=== PATIENT | male | born 1980 | race Caucasian/White ===

== ENCOUNTER 2025-03-04 21:03 | Emergency (ER) | payer BC, SELFPAY ==
[2025-03-04 21:08] VITALS: BP 148/98
--- NOTE | 2025-03-04 21:27 | ED.GENMED ---
History of Present Illness
General
Chief Complaint: Skin Surface Trauma
Source: patient
Exam Limitations: none
Time Seen by Provider: 03/04/25 21:19
History of Present Illness
History of Present Illness:
See MDM
Past History
Past History
ED Past Medical History: None
Social History
Tobacco: Non-smoker
Alcohol: None
Phy Exam
Physical Exam
Physical Exam:
See MDM
Course
Orders/Labs/Results
Orders:
Orders
03/04/25 21:23
Oxycodone [Roxicodone] 5 mg PO NOW STA
CR Finger(s)/thumb Min 2 Vw Rt Urgent
Comment:
Reason For Exam: crush injury to distal middle finger
Indicate Which Finger:: Middle Finger
03/04/25 21:26
Amoxicillin 875 mg/Clav 125 mg [Augmentin 875 mg/125 mg] 1 tablet PO NOW STA
Vital Signs
Initial and Last Documented VS:
Initial Vital Signs
Temp Pulse Resp BP
98.5 F 77 20 148/98
03/04/25 21:08 03/04/25 21:08 03/04/25 21:08 03/04/25 21:08
Last Documented Vital Signs
Temp Pulse Resp BP
98.5 F 77 20 148/98
03/04/25 21:08 03/04/25 21:08 03/04/25 21:08 03/04/25 21:08
MDM/Problems Addressed
Differential Diagnosis Includes:
Note:
CHIEF COMPLAINT(S)
Finger injury.
HISTORY OF PRESENT ILLNESS
The patient is a 44-year-old male who presented with a finger injury. 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 The
patient reports a similar previous incident about 10 years ago, where he injured the same finger by dropping a 105-pound dumbbell on it, resulting in the loss of the fingernail and nail bed, which was treated by a hand surgeon. In the current
injury, pieces of the finger are missing, and the wound is described as dirty. The patient denies any allergies except to bees and reports that his tetanus vaccination is up to date as of two months ago. He requests something for pain relief that
would not cause sleepiness, as he works in physical therapy.
PHYSICAL EXAM
General: Alert, no acute distress.
Skin: Warm, dry.
Head: Normocephalic, atraumatic
Neck: Appears supple, trachea midline.
Eyes, Ears, Nose, Mouth, and Throat: Moist mucous membranes
Cardiovascular: No signs of cyanosis
Respiratory: Respirations are non-labored.
Abdomen: Non-distended
Musculoskeletal: Crush injury to distal left middle finger affecting the nailbed. Cap refill intact. Sensation grossly intact
Neurological: No focal neurological deficit observed.
Psychiatric: Cooperative, appropriate mood and affect.
PLAN
- Perform an x-ray of the injured finger to rule out any fractures.
- Administer antibiotics due to the dirty nature of the wound and the propensity of hand wounds to become infected.
- Apply gel foam to the exposed skin to act as a hemostatic agent, followed by a bulky dressing for protection.
- Refer the patient to a hand specialist, though the expectation is primarily allowing natural healing and regrowth.
- Discuss pain management with the patient, avoiding medications that may interfere with his ability to work.
DIFFERENTIAL DIAGNOSIS
The Differential Diagnosis includes, in no particular order and is not limited to:
- Finger laceration
- Fingertip avulsion
- Finger fracture
- Nail bed injury
- Soft tissue infection
- Crush injury
- Amputation of finger tip
- Foreign body in soft tissue
- Hematoma
- Contusion
INDEPENDENT REVIEW OF LABS AND INTERPRETATION OF TESTS
- My independent interpretation of the x-ray will be performed to assess for any fractures or foreign bodies.
MEDICATION RECONCILIATION
- Prescription anticipated for antibiotics due to the nature of the wound.
MEDICAL DECISION MAKING
- Complexity of Data Reviewed: Chronic conditions affecting care [none mentioned]
In this section also Include the DDx list from differential diagnosis in the system prompt.
- Data:
Category 1
- My independent interpretation of the x-ray will assess for fractures or foreign bodies.
Category 3
- Referral to a hand specialist for follow-up.
- Risk:
- Prescription medication was prescribed.
DIAGNOSIS
- Fingertip avulsion - S68.112A
- Open wound of right finger without damage to nail - S61.010A
- Possible infection of wound - T81.4XXA
SUMMARY OF ENCOUNTER
The patient, a 44-year-old male, presented to the emergency department with an avulsion injury to his fingertip, including involvement of the nail bed. There were missing pieces of skin, making suturing unfeasible. The exposed dermis was treated
with gel foam, and a bulky dressing was applied for protection. The patient confirmed having an up-to-date tetanus vaccination and planned to follow up with a hand surgeon. Due to the wounds nature, the patient was prescribed amoxicillin/clavulanate
(Augmentin) for infection prevention.
PLAN
The patient is advised to follow up with a hand surgeon for further management and wound evaluation. The use of gel foam and a bulky dressing was recommended for wound care. The administration of antibiotics is part of the infection prevention
strategy.
FOLLOW-UP INSTRUCTIONS
Follow-up with a hand surgeon as discussed for ongoing management of the finger injury.
MEDICATION RECONCILIATION
Amoxicillin/clavulanate (Augmentin) was prescribed for the patient to prevent infection.
DIAGNOSIS
Fingertip avulsion with nail bed involvement - S68.112A. Open wound of right finger without damage to nail - S61.010A. Possible infection of the wound - T81.4XXA.
*Pulse Oximetry
Oxygen Mode of Delivery: Room air
Patient hypoxic: no
*Critical Care Note
Total Time (30-74mins, 75-104mins- exclusive of procedures): Not Applicable
ED Attending Note
-
Portions of this chart may have been created with voice recognition software.� Occasional wrong word or��sound alike� substitutions may have occurred due to the inherent limitations of voice recognition software.
Discharge Plan
Departure
Patient Disposition: Home (Routine Discharge)
Date of Disposition: 03/04/25
Time of Disposition: 22:00
Patient with high blood pressure during this ER visit?: Yes
Discharge Problem:
Avulsion, finger tip
Instructions: BLOOD PRESSURE
Prescriptions:
New
amoxicillin-pot clavulanate 875-125 mg tablet
1 tab PO BID Qty: 14 0RF
Referrals:
Campbell Penny CRNP [Family Provider, Internal Medicine]
Activity Restrictions/Additional Instructions:
Please return for any worsening symptoms.
You may return at any time if you have further concerns.
Please follow up with your doctor at the first available appointment, preferably this week.
Please make an appointment to see the hand surgeon.
Thank you for choosing [facility].
Interventions
Interventions:
*Risk Screen - Suicide Last Done: 03/04/25 21:08
*General Assessment Last Done: 03/04/25 21:08
*Neglect/Abuse Screening Last Done: 03/04/25 21:08
*ED COVID-19 Vaccine History Last Done: 03/04/25 21:08
*ED Influenza Vaccine History Last Done: 03/04/25 21:08
Discharge Date and Time
Print Language: NIGERIEN
[2025-03-04] MEDS: AUGMENTIN 875 MG/125 MG 1 TABLET PO (21:52)
[2025-03-04] MEDS: ROXICODONE 5 MG PO (21:52)
== END 2025-03-04 22:47 | disposition home or self-care (01) ==
LOC: EMR 21:03
PROVIDERS: EMERGENCY PHYSICIAN Student in an Organized Health Care Education/Training Program; FAMILY PHYSICIAN Registered Nurse
DX: S61.101A Unspecified open wound of right thumb with damage to nail, initial encounter (principal); W23.0XXA Caught, crushed, jammed, or pinched between moving objects, initial encounter; Y93.89 Activity, other specified
CPT/HCPCS: 99283; 73140